=== PATIENT | female | born 1980 | race Caucasian/White ===

== ENCOUNTER → 2017-02-13 | Outpatient (CLI) | payer BC ==
[~2017-02-13] MED LIST: CULTURELLE PO; LEVOTHROID (S100 MCG PO; MOTRIN800 MG PO; PERCOCET 5-3251 EACH PO; PRENATAL 1+1)(P1 TAB; PRENATAL 1+1)(P1 TAB PO; SURFAK240 MG PO
[2017-02-17 07:01] LABS: T3 REVERSE BY TMS 13.9 ng/dL (9.0-27.0)
== END | disposition disaster alternative care site (69) ==
LOC: GLAB 09:13
PROVIDERS: Obstetrics & Gynecology
DX: E03.9 Hypothyroidism, unspecified (principal)

== ENCOUNTER → 2017-02-26 | Outpatient (CLI) | payer BC | END | disposition disaster alternative care site (69) | LOC: GLAB 10:19 | DX: N80.0 Endometriosis of uterus (principal); N71.1 Chronic inflammatory disease of uterus ==

== ENCOUNTER → 2017-03-28 | Outpatient (CLI) | payer BC | END | disposition disaster alternative care site (69) | LOC: GLAB 13:44 | DX: N80.9 Endometriosis, unspecified (principal); N17.9 Acute kidney failure, unspecified ==

== ENCOUNTER → 2017-04-28 | Outpatient (CLI) | payer BC | END | disposition disaster alternative care site (69) | LOC: GLAB 09:47 | DX: N80.9 Endometriosis, unspecified (principal); N71.1 Chronic inflammatory disease of uterus ==

== ENCOUNTER → 2017-06-13 | Outpatient (CLI) | payer BC | END | disposition disaster alternative care site (69) | LOC: GLAB 15:55 | DX: N80.9 Endometriosis, unspecified (principal); N71.1 Chronic inflammatory disease of uterus ==